=== PATIENT | male | born 1985 | race Caucasian/White ===

== ENCOUNTER 2017-01-14 14:00 | Inpatient (IN) | payer OTHER ==
--- NOTE | ~2017-01-14 | PN ---
Unit #: [id number] #: [id number] Patient: ASHLEY BUI [id number] [facility] [address] [place] [address] [id number] MR#: [id number] NAME: ASHLEY BUI. ROOM: P256 Age: 31 Sex: M Admission Date: 01/14/2017 : 1985 Attending Physician: Johnathon Harris M.D. Admitting Physician: Johnathon Harris M.D. Primary Care Physician: Felicitas Primary Care Physician BRITTNY PROGRESS NOTES DATE 01/16/2017 DISCUSSION Mr. Bui is somewhat sleepy this morning and has received all doses of his new prescribed medications. He denies any significant adverse side effects at this point. He is alert and fully oriented. His memory concentration are fair to good. Thought processes are goal directed with no active psychosis. His irritability is reduced. He continues to report some suicidal thinking ASSESSMENT Major depression versus bipolar 2 disorder. PLAN Continue current treatment plan. Dictated by... Johnathon Harris M.D. [facility]/gz TD: 01/16/2017 13:30 JOB #: [id number] [facility] PROGRESS NOTES Page 1 of 1 X Johnathon Harris MD PROGRESS NOTE
--- NOTE | ~2017-01-14 | DS ---
Unit #: [id number] #: [id number] Patient: GERARDO MONTALVO [id number] [facility] [address] [place] [address] [id number] MR#: [id number] NAME: GERARDO MONTALVO. ROOM: [facility] Age: 31 Sex: M Admission Date: 01/14/2017 : 1985 Discharge Date: 01/18/2017 Attending Physician: Johnathon Harris M.D. Primary Care Physician: Primary Care Physician No DISCHARGE SUMMARY REASON FOR ADMISSION The patient is a 31-year-old man, who reports increasing mood lability, irritability, and explosive temper control. He had some suicidal ideation and could not contract for safety outside of the hospital. He was admitted for stabilization. DIAGNOSTIC STUDIES LABORATORY RESULTS: Urine toxicology was positive for amphetamine metabolites. CMP and CBC were generally within normal limits. HOSPITAL COURSE Gerardo was admitted and placed on suicide precautions. Geodon 40 mg b.i.d. for mood stability and Zoloft 50 mg daily for depression were initiated and trazodone was provided as needed for insomnia. Cepacol lozenges were also provided due to nonproductive cough. He tended to stay away from peers and activities, but did report improvement in his mood. On the date of discharge, he was able to contract for safety in the outpatient setting. DISCHARGE DIAGNOSES AXIS I: Bipolar disorder, depressed, F31.4 AXIS II: Antisocial traits. AXIS III: None acute. AXIS IV: AXIS V: DISCHARGE INSTRUCTIONS Follow up with the [facility] and [facility] if desired. DISCHARGE MEDICATIONS Geodon 40 mg b.i.d. with meals for mood stability, Zoloft 50 mg daily for depression, trazodone 50 mg at bedtime as needed for insomnia. CONDITION AT DISCHARGE Fair. PROGNOSIS Fair. DIET AND ACTIVITY Ad roopa. Unit #: [id number] #: [id number] Patient: GERARDO MONTALVO Dictated by... Johnathon Harris M.D. [facility]/sandra TD: 01/19/2017 06:58 JOB #: [id number] DISCHARGE SUMMARY Page 1 of 1 X Johnathon Harris MD X DISCHARGE SUMMARY
--- NOTE | ~2017-01-14 | HP ---
Unit #: [id number] #: [id number] Patient: GERARDO MONTALVO [id number] [place] [address] [id number] I MR#: [id number] NAME: GERARDO MONTALVO. ROOM: [facility] Age: 31 Sex: M Admission Date: 01/14/2017 : 1985 Attending Physician: Johnathon Harris M.D. Admitting Physician: Johnathon Harris M.D. Primary Care Physician: Primary Care Physician No HISTORY AND PHYSICAL HISTORY OF PRESENT ILLNESS Gerardo is a 42 year old admitted to [address] [place] [address] because of "stress." He has had other admissions to this facility. PAST MEDICAL HISTORY 1. History of IV drugs. 2. Hepatitis C. 3. History of withdrawal seizures. PAST SURGICAL HISTORY Nothing reported ALLERGIES No known drug allergies. SOCIAL HISTORY Smokes one pack per day. Denies alcohol. Admits to using marijuana on a daily basis. FAMILY HISTORY Medically noncontributory. REVIEW OF SYSTEMS CONSTITUTIONAL: No fever or chills. HEENT: Denies any sore throat, ear pain or runny nose. CARDIOVASCULAR: Denies chest pain, irregular heart rhythm or palpitations. CHEST: Denies shortness of breath or cough. No hemoptysis. GASTROINTESTINAL: Denies nausea, vomiting, diarrhea or chronic constipation. ENDOCRINE: Denies history of increased thirst or urination. No recent significant weight loss or gain. GENITOURINARY: Denies dysuria, frequency, or hematuria. SKIN: Denies any rashes. HEMATOLOGIC: Denies history of increased bleeding or bruising. MUSCULOSKELETAL: Denies any hot, swollen joints. No generalized muscle pain. NEUROLOGIC: Denies problems with vision or speech. No frequent, severe headaches. No numbness, tingling or weakness in any extremities. Denies loss of bladder or bowel control. CURRENT MEDICATIONS No orders received at the time of this dictation. Unit #: [id number] #: [id number] Patient: GERARDO MONTALVO PHYSICAL EXAMINATION GENERAL: Alert, well-nourished, in no apparent distress. VITAL SIGNS: Blood pressure 132/74, heart rate 80, respirations 16, temperature 98.6. WEIGHT: 211 pounds. HEIGHT: 5'10". SKIN: Warm and dry without rash. He does have multiple sores about his hands and face. There is no increased redness, swelling, heat or pus noted. HEENT: Normocephalic. TMs not viewed. Oral and nasal passages clear. Conjunctivae clear. Pupils equal, round and reactive to light and accommodation. Extraocular movements intact. NECK: Supple without lymphadenopathy or thyromegaly. HEART: Regular rate and rhythm without murmur. LUNGS: Clear. ABDOMEN: Soft, nontender. : Not done. EXTREMITIES: No evidence of cyanosis, clubbing or edema. Moves all extremities without focal deficit. NEUROLOGICAL: Grossly within normal limits. Cranial Nerves: II: Visual desai are intact. III, IV AND : Extraocular movements are intact. Pupils are equal, round and reactive to light. V: Facial sensation is grossly normal. VII: Facial movements and expression are normal. VIII: Auditory acuity grossly intact. IX, X: Uvula is midline. Phonation is normal. XI: Patient shrugs shoulders and turns head normally. XII: Tongue protrudes in the midline. Sensory and Motor Function: Sensory and motor sensation is grossly normal. Motor: moves all extremities well. Coordination: Gait is normal. Deep Tendon Reflexes: Intact. IMPRESSION Psychiatric admission RECOMMENDATIONS PSYCHIATRIC: Per psychiatrist. MEDICAL: I see no contraindications to participating in facility's activities. MEDICAL PROGNOSIS Good. MEDICAL CONDITION Stable. Dictated by... Chante Alvarez PTeresaA.-Jayla. for Javier Sanches/najma Unit #: [id number] #: [id number] Patient: GERARDO MONTALVO TD: 01/14/2017 22:24 JOB #: [id number] HISTORY AND PHYSICAL Page 1 of 1 X Chante Alvarez X HISTORY AND PHYSICAL
--- NOTE | ~2017-01-14 | PA ---
Unit #: [id number] #: [id number] Patient: GERARDO MONTALVO [id number] [facility] [address] [place] [address] [id number] MR#: [id number] NAME: GERARDO MONTALVO. ROOM: [facility] Age: 31 Sex: M Admission Date: 01/14/2017 : 1985 Date of Assessment: 01/15/2017 Attending Physician: Johnathon Harris M.D. Admitting Physician: Johnathon Harris M.D. Primary Care Physician: Primary Care Physician No PSYCHIATRIC ASSESSMENT DATE OF SERVICE 01/15/2017. INFORMANTS The patient, reliable; [facility] [place], reliable. CHIEF COMPLAINT "I'm stressed all the way". HISTORY OF PRESENT ILLNESS Gerardo Montalvo is a 31-year-old man, who reports an increasing irritability, anger control, and some depression. He states he has been unable to access healthcare services by making appointments and feels hopeless, helpless, and panicky. He denied suicidal ideation, intent, or plan, but did report auditory hallucinations. Although, he did not appear to be responding to internal stimuli. He was admitted for assessment and stabilization. PAST PSYCHIATRIC HISTORY No previous inpatient or outpatient psychiatric treatment. The patient states that he is not currently taking any psychiatric medications. He says he has in the past but would not be specific. FAMILY PSYCHIATRIC HISTORY The patient's father has mental health problems and has abused substances. SOCIAL HISTORY The patient is a high-school graduate, who is currently unemployed for the past year and a half. He has been erratically housed, most recently staying with an aunt. PAST MEDICAL HISTORY Significant for history of seizures, bulging disks, and hepatitis C. MEDICATIONS None currently. ALLERGIES No known medication allergies. SUBSTANCE USE HISTORY The patient reported a history of smoking marijuana daily, but denied any other substance use. Unit #: [id number] #: [id number] Patient: GERARDO MONTALVO MENTAL STATUS EXAMINATION The patient presented as a mildly disheveled man, who appeared his stated age. He was cooperative with the examination. Speech was spontaneous and easily understood. Musculoskeletal examination was calm. Mood was irritable with a congruent affect. He was alert and fully oriented. Memory and concentration, fair to good. Thought processes were goal directed with no evidence of psychosis despite his report. Insight and judgment, fair. Fund of knowledge and abstraction, fair. ASSETS AND LIABILITIES The patient knows local resources and presents voluntarily for treatment. Liabilities include noncompliance with previous treatment, poor insight. ADMITTING DIAGNOSES AXIS I: Bipolar II disorder, F31.81; polysubstance dependence by the hospital history. 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 AXIS III: History of hepatitis C. AXIS IV: AXIS V: PSYCHIATRIC PLAN The patient was admitted and placed on suicide precautions. His previous hospital records were reviewed, despite his disavowal of previous admission, and Zoloft was restarted for treatment of depression with Geodon 40 mg b.i.d. for mood stability, and trazodone as needed for insomnia. He will enroll in psychotherapy groups and activities and physical examination and laboratory studies. TREATMENT GOALS Resolution of SI, improvement in mood stability, improvement in insight, improvement in coping skills, clarification of diagnosis. DISCHARGE PLANNING Follow up with [facility]. ESTIMATED LENGTH OF STAY 5 days. Dictated by... Johnathon Harris M.D. [place]/sandra TD: 01/22/2017 02:16 JOB #: [id number] Unit #: [id number] #: [id number] Patient: GERARDO MONTALVO PSYCHIATRIC ASSESSMENT Page 1 of 1 X Johnathon Harris MD PSYCHIATRIC ASSESSMENT
[~2017-01-14 14:00] MED LIST: AMOXICILLIN PO; AMOXICILLIN500 M1 PO; BACITRACIN30 GM TOP; DARVOCET-N 1001 TA1 PO; DILANTIN PO; HYDROCODON-ACE1 EACH PO; LORTAB 7.5-5001 TAB PO; MEDROL PO; MOBIC PO; MOTRIN600 M1 PO; NAPROSYN500 MG PO; NO MEDICATIONS; TAGAMET PO; ULTRAM PO; VICODIN 5/500 T1 TAB PO; VOLTAREN50 MG PO; VOLTAREN75 MG PO; ZANAFLEX PO; ZANAFLEX4 M1 PO; ZYRTEC PO; [UNRECOGNIZED DRUG - REMARK]
[2017-01-15 09:44] LABS: BASOPHIL# 0.1 X10e3 (0-0.3); BASOPHIL% 0.7 % (0-2.5); EOSINOPHIL# 0.7 X10e3 (0-0.7); HEMATOCRIT 43.5 % (38.0-50.0); LYMPHOCYTE% 35.2 % (17.0-45.0); MEAN CELL VOLUME 90.6 FL (83-96); MEAN CORPUSCULAR HEMOGLOBIN 29.2 PG (28-34); MEAN CORPUSCULAR HGB CONC 32.2 g/dL (30-36); MEAN PLATELET VOLUME 9.4 FL (6.5-11.5); MONOCYTE# 1.7 X10e3 (0-1.0); MONOCYTE% 14.8 % (3.0-12.0); NEUTROPHIL# 4.9 X10e3 (1.5-7.1); NEUTROPHIL% 43.3 % (40-75); PLATELET COUNT 320 X10e3 (140-420); RED CELL DISTRIBUTION WIDTH 14.2 % (11.0-15.5); WHITE BLOOD COUNT 11.3 X10e3 (4.0-10.5)
[2017-01-15 09:50] LABS: DIFF IND NO
[2017-01-15 10:08] LABS: ALBUMIN SERUM 3.5 g/dL (3.5-5.0); BILIRUBIN,TOTAL 0.4 mg/dL (0.2-2.0); BUN/CREATININE RATIO 11.25; CALCIUM SERUM 9.1 mg/dL (8.4-10.2); CREATININE SERUM 0.8 mg/dL (0.6-1.4); GLOM FILT RATE Estimated 119.1 mL/min (>60); POTASSIUM 4.6 mmol/L (3.5-5.1); PROTEIN TOTAL SERUM 6.1 g/dL (6.0-8.3)
[2017-01-15 12:24] LABS: URINE APPEARANCE CLEAR; URINE BILIRUBIN NEG (NEG); URINE BLOOD NEG (NEG); URINE COLOR YELLOW; URINE GLUCOSE NEG (NEG); URINE KETONE NEG (NEG); URINE LEUKOCYTE ESTERASE NEG (NEG); URINE NITRATE NEG (NEG); URINE PH 6.5 (5-8); URINE PROTEIN NEG (NEG); URINE SPECIFIC GRAVITY 1.006 (1.003-1.035)
[2017-01-15 12:39] LABS: AMPHETAMINE POS (NEG); BARBITURATES NEG (NEG); BENZODIAZEPINES NEG (NEG); COCAINE NEG (NEG); MARIJUANA NEG (NEG); OPIATES NEG (NEG); TRICYCLIC ANTIDEPRESSANTS NEG (NEG); U METHADONE NEG (NEG)
== END 2017-01-18 14:36 | disposition home or self-care (01) | DRG 885 ==
LOC: POF 14:00 → P2L 16:40
PROVIDERS: Psychiatry & Neurology Psychiatry
DX: F31.4 Bipolar disorder, current episode depressed, severe, without psychotic features (principal); R45.851 Suicidal ideations; F60.2 Antisocial personality disorder; B19.20 Unspecified viral hepatitis C without hepatic coma; F17.200 Nicotine dependence, unspecified, uncomplicated
CPT/HCPCS: 80053; 80307; 81003; 85025

== ENCOUNTER 2017-03-17 22:36 | Inpatient (IN) | payer OTHER ==
--- NOTE | ~2017-03-17 | PN ---
Unit #: [id number] #: [id number] Patient: ASHLEY MONTALVO [id number] [facility] [address] [place] [address] [id number] MR#: [id number] NAME: ASHLEY MONTALVO. ROOM: P258 Age: 31 Sex: M Admission Date: 03/18/2017 : 1985 Attending Physician: Johnathon Harris M.D. Admitting Physician: Johnathon Harris M.D. Primary Care Physician: Primary Care Physician Felicitas MART PROGRESS NOTES DATE 03/19/2017 DISCUSSION Ashley appears to be mildly sedated from his medications but says that he would like to continue them at their current doses. His mood is irritable and labile with a congruent affect. He is alert and fully oriented. His memory and concentration are fair. Thought processes are goal directed with no active psychosis. He does report ongoing suicidal ideation. ASSESSMENT Bipolar depressed. PLAN Continue Zoloft and Geodon. Dictated by... Johnathon Harris M.D. MRH/bzg TD: 03/21/2017 10:19 JOB #: [id number] [facility] PROGRESS NOTES Page 1 of 1 X Johnathon Harris MD PROGRESS NOTE
--- NOTE | ~2017-03-17 | PA ---
Unit #: [id number] #: [id number] Patient: ASHLEY BUI [id number] [facility] [address] [place] [address] [id number] Ariel MR#: [id number] NAME: ASHLEY BUI. ROOM: [facility] Age: 31 Sex: M Admission Date: 03/18/2017 : 1985 Date of Assessment: 03/18/2017 Attending Physician: Johnathon Harris M.D. Admitting Physician: Johnathon Harris M.D. Primary Care Physician: Primary Care Physician No PSYCHIATRIC ASSESSMENT DATE OF SERVICE 03/18/2017. INFORMANTS The patient reliable; [facility], reliable. CHIEF COMPLAINT "I don't think my medications are working." HISTORY OF PRESENT ILLNESS Mr. Bui is a 31-year-old man with a history of bipolar disorder, who reports recent decompensation with increasing hopelessness, helplessness, depression, and thoughts of suicide with a plan to hang himself. He also has vague auditory hallucinations. He reports compliance with his current medications. He was unable to contract for safety and was admitted for reassessment and stabilization. PAST PSYCHIATRIC HISTORY Last admission to this facility in 12/2016. He is currently a client at [facility] and is taking Zoloft and Geodon. FAMILY PSYCHIATRIC HISTORY The patient's father abused substances and had nonspecific mental health problems. SOCIAL HISTORY The patient is a high-school graduate who is unemployed for the past 2 years. He has erratic housing, has been staying with family. PAST MEDICAL HISTORY Hepatitis C, history of seizures, and history of bulging back disks. MEDICATIONS None currently. ALLERGIES No known medication allergies. SUBSTANCE ABUSE HISTORY The patient reports he has smoked marijuana daily in the past. MENTAL STATUS EXAMINATION The patient presented as a mildly disheveled man who appeared older than Unit #: [id number] #: [id number] Patient: ASHLEY BUI his stated age. He was cooperative with the examination. His speech was spontaneous and easily understood. His musculoskeletal examination was calm. His mood was mildly irritable with a congruent affect. He was alert and fully oriented. His memory and concentration were intact. His thought processes were logical with reports of auditory hallucinations, but no apparent response to internal stimuli or paranoia during my assessment. He reported ongoing suicidal ideation with a plan to hang himself. Insight and judgment were fair. Fund of knowledge and abstraction were fair. ASSETS AND LIABILITIES Assets; the patient knows local resources and comes in voluntarily for treatment. Liabilities; include apparent nonresponse to current treatment plan. ADMITTING DIAGNOSES AXIS I: Bipolar 2 disorder, F31.81; cannabis dependence. AXIS II: Personality disorder, not otherwise specified. AXIS III: History of hepatitis C and history of back pain. AXIS IV: AXIS V: PSYCHIATRIC PLAN The patient was admitted and placed on suicide precautions. Zoloft will be increased to 100 mg daily for treatment of depression with Geodon increased to 60 mg b.i.d. with food for mood stability. Trazodone will be restarted for insomnia. He will enroll in psychotherapy groups and activities and physical examination and laboratory studies will be ordered and reviewed. Treatment goal are resolution of SI, stabilization of mood, improvement in insight, and improvement in coping skills. DISCHARGE PLANNING Follow up with [facility]. ESTIMATED LENGTH OF STAY 5 days. Dictated by... Johnathon Harris M.D. [place]/sandra TD: 03/18/2017 22:55 JOB #: [id number] PSYCHIATRIC ASSESSMENT Page 1 of 1 X Johnathon Harris MD X PSYCHIATRIC ASSESSMENT
--- NOTE | ~2017-03-17 | DS ---
Unit #: [id number] #: [id number] Patient: ASHLEY MONTALVO [id number] [facility] [address] [place] [address] [id number] MR#: [id number] NAME: ASHLEY MONTALVO. ROOM: [facility] Age: 31 Sex: M Admission Date: 03/18/2017 : 1985 Discharge Date: 03/22/2017 Attending Physician: Johnathon Harris M.D. DISCHARGE SUMMARY REASON FOR ADMISSION Ashley is a 31-year-old man with a history of bipolar disorder, who reports that his current medications are insufficient. He had increasing depression with hopelessness, helplessness, and thoughts of suicide with a plan to hang himself as well as vague auditory hallucinations. He was readmitted for stabilization. LABORATORY DATA Liver functions were mildly elevated, but no other clinically significant laboratory studies were found. HOSPITAL COURSE The patient was admitted and the patient was placed on suicide precautions. Zoloft was increased to 100 mg daily for depression, and Geodon increased to 60 mg b.i.d. with food. Trazodone was provided for insomnia. The patient found his medications sedating and Zoloft was changed to an evening dose in order to accommodate this, which was a successful intervention. He participated appropriately in unit groups and activities, and his mood and affect brightened. On the date of discharge, he was once again able to contract for safety with no further suicidal ideation, intent, or plan. DISCHARGE DIAGNOSES AXIS I: Bipolar 2 disorder, cannabis dependence. AXIS II: Personality disorder, not otherwise specified. AXIS III: Hepatitis C. History of back pain. AXIS IV: AXIS V: DISCHARGE INSTRUCTIONS Follow up with [facility]. DISCHARGE MEDICATIONS 1. Zoloft 100 mg daily for depression. 2. Geodon 60 mg twice daily with food for mood stability. 3. Trazodone 50 mg at bedtime as needed for insomnia. CONDITION AT DISCHARGE Improved. PROGNOSIS Good. Unit #: [id number] #: [id number] Patient: ASHLEY MONTALVO DIET Per primary care doctor. ACTIVITY Per primary care doctor. Dictated by... Johnathon Harris M.D. MR/borisl TD: 03/22/2017 18:06 JOB #: [id number] DISCHARGE SUMMARY Page 1 of 1 X Johnathon Harris MD DISCHARGE SUMMARY
--- NOTE | ~2017-03-17 | CO ---
Unit #: [id number] #: [id number] Patient: GERARDO MONTALVO [id number] [place] [address] [id number] MR#: [id number] NAME: GERARDO MONTALVO. ROOM: [facility] Age: 31 Sex: M Admission Date: 03/18/2017 : 1985 Attending Physician: Johnathon Harris M.D. Primary Care Physician: Primary Care Physician No Consultation Date: 03/18/2017 CONSULTATION REPORT SUBJECTIVE Gerardo is a 31 year old who picks at himself when he is high. He has multiple abrasions or scabbed areas along his face and arms. He also has a single area along his left anterior chest wall where he tells me he dug a tick out with his pocket knife 1 to 2 days prior to admission. I have been asked to assess and treat. OBJECTIVE GENERAL: Alert, well-nourished, in no apparent distress. VITAL SIGNS: Blood pressure 120/70, heart rate 80, respirations 16, temperature 98.6. SKIN: Warm and dry without rash. He does have multiple abrasions and round scabbed areas on his face and arms. There is a single approximately quarter size scabbed area along his left anterior chest wall. This is the site where he told me he dug a tick out. The skin along his toes is red and evidence of excoriation. ASSESSMENT 1. Tick bite. 2. Tinea pedis. PLAN 1. Doxycycline 100 mg 1 p.o. b.i.d. x14 days. 2. Lotrisone cream b.i.d. Dictated by... Chante Alvarez P.A.-C. for Javier Sanches/briana TD: 03/18/2017 21:44 JOB #: [id number] Unit #: [id number] #: [id number] Patient: GERARDO MONTALVO CONSULTATION REPORT Page 1 of 1 X Chante Alvarez CONSULTATION REPORT
--- NOTE | ~2017-03-17 | HP ---
Unit #: [id number] #: [id number] Patient: GERARDO MONTALVO [id number] [place] [address] [id number] MR#: [id number] NAME: GERARDO MONTALVO. ROOM: [facility] Age: 31 Sex: M Admission Date: 03/18/2017 : 1985 Attending Physician: Johnathon Harris M.D. Admitting Physician: Johnathon Harris M.D. Primary Care Physician: Primary Care Physician No HISTORY AND PHYSICAL HISTORY OF PRESENT ILLNESS Gerardo is a 31 year old admitted to [address] [place] [address] with depression and verbalizing wanting to hurt himself. PAST MEDICAL HISTORY 1. History of IV drugs. He denies anything currently. 2. Hepatitis C. 3. History of withdrawal seizures. PAST SURGICAL HISTORY Nothing reported. ALLERGIES No known drug allergies. SOCIAL HISTORY Smokes 1 pack per day. Denies alcohol. Admits to using marijuana on occasion and has a history of IV drug use which he has not used in quite some time. FAMILY HISTORY Medically noncontributory. REVIEW OF SYSTEMS CONSTITUTIONAL: No fever or chills. HEENT: Denies any sore throat, ear pain or runny nose. CARDIOVASCULAR: Denies chest pain, irregular heart rhythm or palpitations. CHEST: Denies shortness of breath or cough. No hemoptysis. GASTROINTESTINAL: Denies nausea, vomiting, diarrhea or chronic constipation. ENDOCRINE: Denies history of increased thirst or urination. No recent significant weight loss or gain. GENITOURINARY: Denies dysuria, frequency, or hematuria. SKIN: Denies any rashes. HEMATOLOGIC: Denies history of increased bleeding or bruising. MUSCULOSKELETAL: Denies any hot, swollen joints. No generalized muscle pain. NEUROLOGIC: Denies problems with vision or speech. No frequent, severe headaches. No numbness, tingling or weakness in any extremities. Denies loss of bladder or bowel control. CURRENT MEDICATIONS 1. Zoloft 100 mg daily. Unit #: [id number] #: [id number] Patient: GERARDO MONTALVO 2. Desyrel 100 mg daily. 3. Geodon 600 mg b.i.d. 4. Nicotine patch 14 mg daily. 5. Melatonin p.r.n. 6. Milk of Magnesia p.r.n. 7. Maalox p.r.n. 8. Tylenol p.r.n. PHYSICAL EXAMINATION GENERAL: Alert, well-nourished, in no apparent distress. VITAL SIGNS: Blood pressure 126/86, heart rate 80, respirations 16, temperature 98.6. WEIGHT: 205. HEIGHT: 6 feet 0 inches. SKIN: Warm and dry without rash or lesion. HEENT: Normocephalic. TMs not viewed. Oral and nasal passages clear. Conjunctivae clear. PERRLA. EOMs intact. NECK: Supple without lymphadenopathy or thyromegaly. HEART: Regular rate and rhythm without murmur. LUNGS: Clear. ABDOMEN: Soft, nontender. : Not done. EXTREMITIES: No evidence of cyanosis, clubbing or edema. Moves all without focal deficit. NEUROLOGICAL: Grossly within normal limits. Cranial Nerves: II: Visual desai are intact. III, IV AND : Extraocular movements are intact. Pupils are equal, round and reactive to light. V: Facial sensation is grossly normal. VII: Facial movements and expression are normal. VIII: Auditory acuity grossly intact. IX, X: Uvula is midline. Phonation is normal. XI: Patient shrugs shoulders and turns head normally. XII: Tongue protrudes in the midline. Sensory and Motor Function: Sensory and motor sensation is grossly normal. Motor: moves all extremities well. Coordination: Gait is normal. Deep Tendon Reflexes: Intact. IMPRESSION Psychiatric admission. RECOMMENDATIONS PSYCHIATRIC: Per psychiatrist. MEDICAL: See no contraindications to participate in facility's activities. MEDICAL PROGNOSIS Good. MEDICAL CONDITION Stable. Dictated by... Chante Alvarez P.A.-C. for Javier Sanches/briana Unit #: [id number] #: [id number] Patient: GERARDO MONTALVO TD: 03/18/2017 20:10 JOB #: [id number] HISTORY AND PHYSICAL Page 1 of 1 X Chante Alvarez HISTORY AND PHYSICAL
[2017-03-18 09:52] LABS: BASOPHIL# 0.1 X10e3 (0-0.3); BASOPHIL% 0.8 % (0-2.5); EOSINOPHIL# 1.4 X10e3 (0-0.7); EOSINOPHIL% 11.6 % (0.0-7.0); HEMATOCRIT 47.9 % (38.0-50.0); HEMOGLOBIN 15.3 gm/dL (13.0-16.0); LYMPHOCYTE# 3.8 X10e3 (1.0-3.5); LYMPHOCYTE% 31.7 % (17.0-45.0); MEAN CELL VOLUME 91.7 FL (83-96); MEAN CORPUSCULAR HEMOGLOBIN 29.2 PG (28-34); MEAN CORPUSCULAR HGB CONC 31.9 g/dL (30-36); MEAN PLATELET VOLUME 9.5 FL (6.5-11.5); MONOCYTE# 1.7 X10e3 (0-1.0); MONOCYTE% 14.7 % (3.0-12.0); NEUTROPHIL# 4.9 X10e3 (1.5-7.1); NEUTROPHIL% 41.2 % (40-75); PLATELET COUNT 280 X10e3 (140-420); RED BLOOD COUNT 5.22 X10e (3.90-5.60); RED CELL DISTRIBUTION WIDTH 13.7 % (11.0-15.5); WHITE BLOOD COUNT 11.8 X10e3 (4.0-10.5)
[2017-03-18 10:04] LABS: DIFF IND NO
[2017-03-18 10:15] LABS: ALBUMIN SERUM 4.4 g/dL (3.5-5.0); CALCIUM SERUM 9.1 mg/dL (8.4-10.2); CREATININE SERUM 0.8 mg/dL (0.6-1.4); GLOM FILT RATE Estimated 119.1 mL/min (>60); POTASSIUM 5.1 mmol/L (3.5-5.1); PROTEIN TOTAL SERUM 7.7 g/dL (6.0-8.3)
[2017-03-19 11:30] LABS: URINE SOURCE CLEAN CATCH
[2017-03-19 12:51] LABS: URINE APPEARANCE CLEAR; URINE BILIRUBIN NEG (NEG); URINE BLOOD NEG (NEG); URINE COLOR DK YELLOW; URINE GLUCOSE NEG (NEG); URINE KETONE TRACE (NEG); URINE LEUKOCYTE ESTERASE TRACE (NEG); URINE NITRATE NEG (NEG); URINE PROTEIN NEG (NEG); URINE SPECIFIC GRAVITY 1.023 (1.003-1.035)
[2017-03-19 12:58] LABS: URBCS1 AUWI 0-2 /[HPF] (0-2); URINE BACTERIA AUWI NEG (NEGATIVE); URINE SQUAMOUS EPITHELIAL CELL NONE SEEN /[HPF]
[2017-03-19 13:37] LABS: AMPHETAMINE POS (NEG); BARBITURATES NEG (NEG); BENZODIAZEPINES NEG (NEG); COCAINE NEG (NEG); MARIJUANA NEG (NEG); OPIATES NEG (NEG); TRICYCLIC ANTIDEPRESSANTS NEG (NEG); U METHADONE NEG (NEG)
== END 2017-03-22 11:10 | disposition home or self-care (01) | DRG 885 ==
LOC: P2L 03-18 01:29
PROVIDERS: Psychiatry & Neurology Psychiatry
DX: F31.81 Bipolar II disorder (principal); B19.20 Unspecified viral hepatitis C without hepatic coma; F12.20 Cannabis dependence, uncomplicated; F60.9 Personality disorder, unspecified; M54.9 Dorsalgia, unspecified
CPT/HCPCS: 80053; 80307; 81003; 85025